=== PATIENT | female | born 1935 | race Caucasian/White ===

== ENCOUNTER → 2017-07-07 | Outpatient (CLI) | payer OTHER | LOC: M.RAD 06:48 | DX: Z12.31 Encounter for screening mammogram for malignant neoplasm of breast (principal) ==

== ENCOUNTER → 2017-07-14 | Outpatient (CLI) | payer OTHER | LOC: M.ULTRA 08:47 | DX: N63.20 Unspecified lump in the left breast, unspecified quadrant (principal) ==

== ENCOUNTER → 2018-07-27 | Outpatient (CLI) | payer OTHER | LOC: M.RAD 06:48 | DX: Z12.31 Encounter for screening mammogram for malignant neoplasm of breast (principal) ==

== ENCOUNTER → 2019-07-27 | Outpatient (CLI) | payer OTHER | LOC: M.RAD 08:37 | DX: C85.81 Other specified types of non-Hodgkin lymphoma, lymph nodes of head, face, and neck (principal); D69.3 Immune thrombocytopenic purpura; N63.20 Unspecified lump in the left breast, unspecified quadrant ==

== ENCOUNTER → 2020-07-28 | Outpatient (CLI) | payer OTHER | LOC: M.RAD 09:00 | PROVIDERS: ATTEND Internal Medicine | DX: C85.81 Other specified types of non-Hodgkin lymphoma, lymph nodes of head, face, and neck (principal); D69.3 Immune thrombocytopenic purpura ==

== ENCOUNTER → 2020-12-25 | Outpatient (CLI) | payer OTHER | LOC: M.RAD 09:47 | PROVIDERS: ATTEND Internal Medicine | DX: M25.561 Pain in right knee (principal); M25.562 Pain in left knee; G89.29 Other chronic pain ==